=== PATIENT | male | born 1955 | race Caucasian/White ===

== ENCOUNTER 2023-07-18 09:45 | Outpatient (CLI) | payer BC, SELFPAY | END 2023-07-18 09:46 | disposition home or self-care (01) | LOC: WOUND 09:49 | PROVIDERS: Visit Provider Surgery | DX: I70.213 Atherosclerosis of native arteries of extremities with intermittent claudication, bilateral legs (principal); I70.245 Atherosclerosis of native arteries of left leg with ulceration of other part of foot; L97.528 Non-pressure chronic ulcer of other part of left foot with other specified severity; F17.210 Nicotine dependence, cigarettes, uncomplicated; Z13.1 Encounter for screening for diabetes mellitus | CPT/HCPCS: 36415; 83036; G0463 ==

== ENCOUNTER 2023-07-25 09:14 | Outpatient (CLI) | payer BC, SELFPAY | END 2023-07-25 09:15 | disposition home or self-care (01) | LOC: WOUND 09:14 | PROVIDERS: Visit Provider Surgery | DX: I70.213 Atherosclerosis of native arteries of extremities with intermittent claudication, bilateral legs (principal); I70.245 Atherosclerosis of native arteries of left leg with ulceration of other part of foot; L97.528 Non-pressure chronic ulcer of other part of left foot with other specified severity; F17.210 Nicotine dependence, cigarettes, uncomplicated | CPT/HCPCS: G0463 ==

== ENCOUNTER 2023-08-01 09:25 | Outpatient (CLI) | payer BC, SELFPAY ==
[2023-08-01 10:47] LABS: Basophils Percent Auto 0.6 % (0.0-3.0); C Reactive Protein* 0.5 mg/dL (0.5-1.0); Eosinophils Percent Auto 2.8 % (0.0-7.0); Hematocrit 43.5 % (37.0-53.0); Hemoglobin* 14.1 gm/dL (13.5-17.5); Immature Granulocytes Pct Auto 0.3 %; Lymphocytes Percent Auto 21.6 % (20-44); Mean Corpuscular HGB Conc 32 gm/dL (32-36); Mean Corpuscular Hemoglobin 27 pg (26-34); Mean Corpuscular Volume 84 fL (80-100); Monocytes Percent Auto 6.7 % (0.0-11.0); Platelet Count* 578 K/uL (140-440); RDW Coefficient of Variation % 13.1 % (11.5-15.5); Red Blood Count 5.18 m/uL (4.30-5.90); White Blood Count* 11.01 K/uL (4.50-11.00)
[2023-08-01 11:08] LABS: Slide Review Reflex No
[2023-08-01 11:33] LABS: Erythrocyte SedimentationRate* 2 mm/hr (2-15)
== END 2023-08-01 09:26 | disposition home or self-care (01) ==
LOC: WOUND 09:25
PROVIDERS: Visit Provider Surgery
DX: I70.213 Atherosclerosis of native arteries of extremities with intermittent claudication, bilateral legs (principal); I70.245 Atherosclerosis of native arteries of left leg with ulceration of other part of foot; L97.528 Non-pressure chronic ulcer of other part of left foot with other specified severity; F17.210 Nicotine dependence, cigarettes, uncomplicated
CPT/HCPCS: 36415; 85025; 85651; 86140; 96372; 97597; G0463; J0696

== ENCOUNTER 2023-08-01 10:22 | Outpatient (CLI) | payer BC, SELFPAY ==
--- NOTE | 2023-08-01 10:30 | CRLHL7_ITS ---
For Patients: As a result of the Century Cures Act, medical imaging exams and procedure reports are released immediately into your electronic medical record. You may view this report before your referring provider. If you have questions, please contact your health care provider. ULTRASOUND BILATERAL LOWER EXTREMITY ARTERIAL CLINICAL HISTORY: Atherosclerosis of [place] artery of both lower extremities. COMPARISON: None available. TECHNIQUE: The bilateral lower extremity arteries were examined per exam specific protocol with narayanan-scale ultrasound, color-flow and Doppler spectral analysis. Peak systolic velocities (PSV), Doppler waveform quality and velocity ratios, if applicable, were documented at sites per exam specific protocol. FINDINGS: RIGHT: PSV (cm/sec). Waveform (T-Tri, B-Bi, M-[place]). LEAD PRODUCER: 120. T. DFA: 83. B. FA PRX: 91. T. FA MID: 82. T. FA DISTAL: 49. B. POP A: 49. B. CONCHITA A: 38. B. LATHE HAND: 33. B. HAI: 33. B. DPA: 15. M. LEFT: PSV (cm/sec). Waveform (T-Tri, B-Bi, M-[place]). LEAD PRODUCER: 60. B. DFA: 223. B. FA PRX: 80. T. FA MID: 65. B. FA DISTAL: 30. M. POP A: 23. M. [place]ITA A: 12. M. LATHE HAND: 30. M. HAI: 18. M. DPA: 9. M. There appears to be a 7 cm area of focal occlusion in the mid to distal left femoral artery, with a well-developed enlarged collateral. IMPRESSION: 1. 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 2. Right lower extremity with multiphasic waveforms throughout with the exception of the right dorsalis pedis artery. Pako Leon M.D. Interventional Radiology/Diagnostic Radiology (IR/DR) [email or web address] SP/Dictated by: Pako Leon MD @ 08/01/2023 2:54:00 PM (Electronically Signed)
== END 2023-08-01 10:23 | disposition home or self-care (01) ==
LOC: US 10:22
PROVIDERS: Visit Provider Surgery
DX: I70.213 Atherosclerosis of native arteries of extremities with intermittent claudication, bilateral legs (principal)
CPT/HCPCS: 36415; 85025; 85651; 86140; 93926; 96372; 97597; G0463; J0696

== ENCOUNTER 2023-08-08 09:34 | Outpatient (CLI) | payer BC, SELFPAY | END 2023-08-08 09:35 | disposition home or self-care (01) | LOC: WOUND 09:34 | PROVIDERS: Visit Provider Surgery | DX: I70.213 Atherosclerosis of native arteries of extremities with intermittent claudication, bilateral legs (principal); I70.245 Atherosclerosis of native arteries of left leg with ulceration of other part of foot; L97.528 Non-pressure chronic ulcer of other part of left foot with other specified severity; S91.102A Unspecified open wound of left great toe without damage to nail, initial encounter; F17.210 Nicotine dependence, cigarettes, uncomplicated | CPT/HCPCS: G0463 ==

== ENCOUNTER 2023-08-15 09:28 | Outpatient (CLI) | payer BC, SELFPAY | END 2023-08-15 09:29 | disposition home or self-care (01) | LOC: WOUND 09:28 | PROVIDERS: Visit Provider Surgery | DX: I70.245 Atherosclerosis of native arteries of left leg with ulceration of other part of foot (principal); L97.528 Non-pressure chronic ulcer of other part of left foot with other specified severity; F17.210 Nicotine dependence, cigarettes, uncomplicated | CPT/HCPCS: G0463 ==

== ENCOUNTER 2023-08-22 09:26 | Outpatient (CLI) | payer BC, SELFPAY | END 2023-08-22 09:27 | disposition home or self-care (01) | LOC: WOUND 09:26 | PROVIDERS: Visit Provider Surgery | DX: I70.245 Atherosclerosis of native arteries of left leg with ulceration of other part of foot (principal); L97.528 Non-pressure chronic ulcer of other part of left foot with other specified severity; F17.210 Nicotine dependence, cigarettes, uncomplicated | CPT/HCPCS: G0463 ==

== ENCOUNTER 2023-08-29 09:28 | Outpatient (CLI) | payer BC, SELFPAY | END 2023-08-29 09:29 | disposition home or self-care (01) | PROVIDERS: Visit Provider Surgery | DX: I70.213 Atherosclerosis of native arteries of extremities with intermittent claudication, bilateral legs (principal); I70.245 Atherosclerosis of native arteries of left leg with ulceration of other part of foot; L97.528 Non-pressure chronic ulcer of other part of left foot with other specified severity; F17.210 Nicotine dependence, cigarettes, uncomplicated | CPT/HCPCS: G0463 ==

== ENCOUNTER 2023-09-13 08:08 | Outpatient (CLI) | payer BC, SELFPAY | END 2023-09-13 08:09 | disposition home or self-care (01) | LOC: WOUND 08:08 | PROVIDERS: Visit Provider Nurse Practitioner Family | DX: I70.245 Atherosclerosis of native arteries of left leg with ulceration of other part of foot (principal); I70.213 Atherosclerosis of native arteries of extremities with intermittent claudication, bilateral legs; L97.528 Non-pressure chronic ulcer of other part of left foot with other specified severity; F17.210 Nicotine dependence, cigarettes, uncomplicated | CPT/HCPCS: G0463 ==

== ENCOUNTER 2023-09-19 10:24 | Outpatient (CLI) | payer BC, SELFPAY | END 2023-09-19 10:25 | disposition home or self-care (01) | LOC: WOUND 10:24 | PROVIDERS: Visit Provider Surgery | DX: I70.245 Atherosclerosis of native arteries of left leg with ulceration of other part of foot (principal); L97.522 Non-pressure chronic ulcer of other part of left foot with fat layer exposed | CPT/HCPCS: 97597 ==

== ENCOUNTER 2023-09-26 09:29 | Outpatient (CLI) | payer BC, SELFPAY | END 2023-09-26 09:30 | disposition home or self-care (01) | LOC: WOUND 09:29 | PROVIDERS: Visit Provider Surgery | DX: I70.245 Atherosclerosis of native arteries of left leg with ulceration of other part of foot (principal); L97.528 Non-pressure chronic ulcer of other part of left foot with other specified severity; L97.522 Non-pressure chronic ulcer of other part of left foot with fat layer exposed; F17.210 Nicotine dependence, cigarettes, uncomplicated | CPT/HCPCS: 97597 ==

== ENCOUNTER 2023-10-03 11:25 | Outpatient (CLI) | payer BC, SELFPAY | END 2023-10-03 11:26 | disposition home or self-care (01) | LOC: WOUND 11:25 | PROVIDERS: Visit Provider Surgery | DX: I70.245 Atherosclerosis of native arteries of left leg with ulceration of other part of foot (principal); I70.213 Atherosclerosis of native arteries of extremities with intermittent claudication, bilateral legs; L97.528 Non-pressure chronic ulcer of other part of left foot with other specified severity; L97.522 Non-pressure chronic ulcer of other part of left foot with fat layer exposed; F17.210 Nicotine dependence, cigarettes, uncomplicated | CPT/HCPCS: 97597 ==

== ENCOUNTER 2023-10-10 09:08 | Outpatient (CLI) | payer BC, SELFPAY | END 2023-10-10 09:09 | disposition home or self-care (01) | LOC: WOUND 09:08 | PROVIDERS: Visit Provider Physician Assistant | DX: I70.245 Atherosclerosis of native arteries of left leg with ulceration of other part of foot (principal); I70.213 Atherosclerosis of native arteries of extremities with intermittent claudication, bilateral legs; L97.522 Non-pressure chronic ulcer of other part of left foot with fat layer exposed; F17.210 Nicotine dependence, cigarettes, uncomplicated | CPT/HCPCS: 97597 ==

== ENCOUNTER 2023-10-17 09:10 | Outpatient (CLI) | payer BC, SELFPAY | END 2023-10-17 09:11 | disposition home or self-care (01) | LOC: WOUND 09:10 | PROVIDERS: Visit Provider Surgery | DX: I70.245 Atherosclerosis of native arteries of left leg with ulceration of other part of foot (principal); I70.213 Atherosclerosis of native arteries of extremities with intermittent claudication, bilateral legs; L97.528 Non-pressure chronic ulcer of other part of left foot with other specified severity; F17.210 Nicotine dependence, cigarettes, uncomplicated | CPT/HCPCS: G0463 ==

== ENCOUNTER 2023-10-31 09:06 | Outpatient (CLI) | payer BC, SELFPAY | END 2023-10-31 09:07 | disposition home or self-care (01) | LOC: WOUND 09:06 | PROVIDERS: Visit Provider Surgery | DX: I70.213 Atherosclerosis of native arteries of extremities with intermittent claudication, bilateral legs (principal); F17.210 Nicotine dependence, cigarettes, uncomplicated; Z87.2 Personal history of diseases of the skin and subcutaneous tissue | CPT/HCPCS: G0463 ==

== ENCOUNTER 2024-03-06 08:08 | Outpatient (CLI) | payer BC, SELFPAY | END 2024-03-06 08:09 | disposition home or self-care (01) | LOC: WOUND 08:10 | PROVIDERS: Visit Provider Nurse Practitioner Family | DX: I70.245 Atherosclerosis of native arteries of left leg with ulceration of other part of foot (principal); L97.522 Non-pressure chronic ulcer of other part of left foot with fat layer exposed; F17.210 Nicotine dependence, cigarettes, uncomplicated | CPT/HCPCS: 97597; G0463 ==

== ENCOUNTER 2024-03-13 08:21 | Outpatient (CLI) | payer BC, SELFPAY | END 2024-03-13 08:22 | disposition home or self-care (01) | LOC: WOUND 08:21 | PROVIDERS: Visit Provider Nurse Practitioner Family | DX: I70.245 Atherosclerosis of native arteries of left leg with ulceration of other part of foot (principal); L97.522 Non-pressure chronic ulcer of other part of left foot with fat layer exposed; F17.210 Nicotine dependence, cigarettes, uncomplicated | CPT/HCPCS: 97597 ==

== ENCOUNTER 2024-03-20 08:32 | Outpatient (CLI) | payer BC, SELFPAY | END 2024-03-20 08:33 | disposition home or self-care (01) | LOC: WOUND 08:32 | PROVIDERS: Visit Provider Nurse Practitioner Family | DX: I70.213 Atherosclerosis of native arteries of extremities with intermittent claudication, bilateral legs (principal); L97.522 Non-pressure chronic ulcer of other part of left foot with fat layer exposed; F17.210 Nicotine dependence, cigarettes, uncomplicated | CPT/HCPCS: 97597 ==

== ENCOUNTER 2024-04-03 08:25 | Outpatient (CLI) | payer BC, SELFPAY | END 2024-04-03 08:26 | disposition home or self-care (01) | LOC: WOUND 08:26 | PROVIDERS: Visit Provider Physician Assistant Surgical | DX: I70.213 Atherosclerosis of native arteries of extremities with intermittent claudication, bilateral legs (principal); L97.522 Non-pressure chronic ulcer of other part of left foot with fat layer exposed; B35.1 Tinea unguium; F17.210 Nicotine dependence, cigarettes, uncomplicated | CPT/HCPCS: 11042 ==

== ENCOUNTER 2024-04-10 08:30 | Outpatient (CLI) | payer BC, SELFPAY | END 2024-04-10 08:31 | disposition home or self-care (01) | LOC: WOUND 08:31 | PROVIDERS: Visit Provider Nurse Practitioner Family | DX: I70.213 Atherosclerosis of native arteries of extremities with intermittent claudication, bilateral legs (principal); L97.528 Non-pressure chronic ulcer of other part of left foot with other specified severity; B35.1 Tinea unguium; M79.672 Pain in left foot; F17.210 Nicotine dependence, cigarettes, uncomplicated | CPT/HCPCS: G0463 ==

== ENCOUNTER 2024-04-10 08:58 | Outpatient (CLI) | payer BC, SELFPAY | END 2024-04-10 08:59 | disposition home or self-care (01) | LOC: RAD 08:58 | PROVIDERS: Visit Provider Nurse Practitioner Family | DX: L97.522 Non-pressure chronic ulcer of other part of left foot with fat layer exposed (principal) | CPT/HCPCS: 73630 ==

== ENCOUNTER 2024-04-17 08:30 | Outpatient (CLI) | payer BC, SELFPAY | END 2024-04-17 08:31 | disposition home or self-care (01) | LOC: WOUND 08:30 | PROVIDERS: Visit Provider Nurse Practitioner Family | DX: I70.213 Atherosclerosis of native arteries of extremities with intermittent claudication, bilateral legs (principal); L97.528 Non-pressure chronic ulcer of other part of left foot with other specified severity; B35.1 Tinea unguium; F17.210 Nicotine dependence, cigarettes, uncomplicated | CPT/HCPCS: G0463 ==

== ENCOUNTER 2024-04-24 08:27 | Outpatient (CLI) | payer BC, SELFPAY | END 2024-04-24 08:28 | disposition home or self-care (01) | LOC: WOUND 08:27 | PROVIDERS: Visit Provider Nurse Practitioner Family | DX: I70.213 Atherosclerosis of native arteries of extremities with intermittent claudication, bilateral legs (principal); M79.672 Pain in left foot; F17.210 Nicotine dependence, cigarettes, uncomplicated | CPT/HCPCS: G0463 ==